=== PATIENT | male | born 1970 | race Caucasian/White ===

== ENCOUNTER → 2020-09-26 08:46 | Outpatient (CLI) | payer OTHER, SELFPAY ==
[2020-09-26 09:14] LABS: COVID19 -Nasal RAPID Negative (Negative)
== END ==
PROVIDERS: Visit Provider Physician Assistant
DX: Z20.822 Contact with and (suspected) exposure to COVID-19 (principal)
CPT/HCPCS: 87635

== ENCOUNTER 2020-09-27 14:14 | Day surgery (SDC) | payer OTHER, SELFPAY ==
--- NOTE | 2020-09-27 | PATH_ITS ---
[facility] Accession Number: [id number] . 01 Material submitted: . rectum - RECTAL BIOPSIES . 01 Clinical history: . A: RECTAL BIOPSIES- 2MM X2, 4MM X2 . 02 Diagnosis: Rectum Biopsies: 2 mm x2, 4 mm x2, Biopsies: Multiple fragments of hyperplastic polyp. Mucosal prolapse polyp, one fragment. [facility] 10/03/2020 1050 Local . 02 Electronically signed: . Lilibeth Evans MD, Pathologist NPI- [id number] . 01 Gross description: . The specimen is received in formalin, labeled rectal, and consists of multiple ibrahim-pink fragments of soft tissue measuring 1.2 x 1.0 x 0.2 cm in aggregate. The specimen is entirely submitted in cassette A1. ([id number]) /[facility] 09/28/2020 1659 Local . 02 Pathologist provided ICD-10: Z12.11, K62.1 . 02 CPT . 950455 Performed at: 01 [facility] [address], [place], [place] [id number] MD Rikki Kuo MD Phone: [phone] Performed at: 02 [facility] [address] [place], [place] [id number] MD Lilibeth Evans MD Phone: [phone]
--- NOTE | 2020-09-27 12:24 | P.HP_ITS ---
History of Present Illness History of Present Illness Date Patient Seen: 09/27/20 Chief complaint: [facility] Narrative: 50 Years Old Male seen today for consideration of a screening colonoscopy. There have been no lower GI symptoms suggesting disease such as change in bowel habits, bleeding, abdominal pain or anemia. There's been no family history of colon cancer or colon polyps. Overall health issues have been stable, including no major cardiac events for at least 6 weeks. Past Medical History: Hyperlipidemia Spinal stenosis, lumbar Foot drop, left Elevated blood pressure reading without diagnosis of hypertension Tobacco dependence ( ALCOHOL ABUSE Past Surgical History: R eardrum surgery x 2 vasectomy L thumb ORIF Family History: Adopted. Social History: Lives at home with and son. 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 Alcohol: 4 cans of beer per day Tobacco: 10 pack year history Ilicit drugs, nothing in last 20 years, THC in college. Patient History Medical History (Updated 09/27/20 @ 14:50 by Vitor Bergman RN) Foot drop, left Hyperlipidemia Hypertension Spinal stenosis, lumbar Surgical History (Updated 09/27/20 @ 14:50 by Vitor Bergman RN) History of ear surgery Hx of thumb surgery Meds Home Medications and Allergies Home Medications Medication Instructions Recorded Confirmed Type atorvastatin 20 mg PO BEDTIME 09/27/20 09/27/20 History Allergies Allergy/AdvReac Type Severity Reaction Status Date / Time CODEINE Allergy Severe Vomiting Uncoded 09/27/20 14:52 Review of Systems Review of Systems ROS: Yes All systems reviewed with the patient and are negative except as otherwise documented Exam Narrative Exam Narrative: GENERAL: Alert and oriented, appearing stated age and in no acute distress. HEENT: Head normocephalic/atraumatic. Pupils equal, round, and reactive to light and accomodation. Extraocular muscles intact. Tympanic membranes clear. Nasal mucosa moist, septum midline. Oral mucosa moist, no lesions. Neck soft and supple, no lymphadenopathy. LUNGS: Clear to ausculation bilaterally, no wheezes, rhonchi or rales. CV: Normal S1 and S2 with regular rate and rhythm, no audible murmurs, rubs or gallops. ABDOMEN: Soft, non-tender, non-distended, no organomegaly. Positive bowel sounds. EXTREMITIES: No clubbing, cyanosis, or edema. NEURO: Cranial nerves II through XII grossly intact, no focal deficits. PSYCH: Alert and oriented x 3. SKIN: No concerning lesions. Assessment & Plan Assessment & Plan narrative: Problem # 1: Screening for colon cancer 1. Colonoscopy The nature and character of the procedure as well as anticipated results were discussed. The possibility of not completing the procedure was also discussed. Possible complications including aspiration pneumonia, bleeding, perforation and reaction to medications either for sedation or preparation and missed lesions were discussed. Questions were answered and proceeding to the colonoscopy was elected. Informed consent signed. I sincerely appreciate the referral allowing me to participate in this patient's care. Please contact me with any questions or concerns. Problem # 2: ALCOHOL ABUSE Due to concurrent heavy alcohol use, will consult MD anesthesia for this procedure.
--- NOTE | 2020-09-27 12:25 | PM.OP.ENDO ---
Operative Date/Time/Diagnoses Date of procedure: 09/27/20 Procedure Notes Procedure in detail: ENDOSCOPIST: Jessica Keller MD Anesthesiologist: Dr. Walters Sedation start time: 3:57 p.m. Sedation end time: 4:29 p.m. PROCEDURE: Colonoscopy with cold biopsy INDICATIONS: 1. Screening for colon cancer MEDICATION: Levsin 0.125 mg sublingual, 100 mcg of fentanyl and incremental doses of propofol until appropriate level of sedation achieved. ASA CLASS: 2 CECAL WITHDRAWAL TIME: 11 minutes COMPLICATIONS: None. EXTENT OF PROCEDURE: Cecum. QUALITY OF PREP: Good with portions of liquid stool. PROCEDURE: Prior to insertion of the colonoscope, a digital rectal examination was accomplished with circumferential palpation of the distal rectal mucosa without significant findings being noted. The high-definition colonoscope was passed into the rectum in the usual fashion and advanced over to the cecum without difficulty. The ileocecal valve, appendiceal stoma, and medial wall all could be inspected and no abnormalities were seen. ASCENDING COLON: As the colonoscope was withdrawn, care was taken to expose and inspect the haustral folds and no abnormalities were seen. HEPATIC FLEXURE: Normal, no polyps, diverticula or other abnormalities. TRANSVERSE COLON: Normal, no polyps, diverticula or other abnormalities. DESCENDING COLON: Normal, no polyps, diverticula or other abnormalities. SIGMOID COLON: Minor diverticulosis, otherwise, normal, no polyps or other abnormalities. RECTUM: 4 polyps, 2-4 mm, removed with cold biopsy forceps. J maneuver was produced. There was no significant perianal disease. The J maneuver was broken. The remainder of the rectum was inspected and there was no external hemorrhoid disease. The scope was withdrawn. IMPRESSION: 1. Rectal polyps x4, 2-4 mm, removed with cold biopsy forceps 2. Sigmoid diverticulosis, mild PLAN: 1. Follow-up in clinic status post pathology results. The possibility of a missed lesion including a malignancy has been discussed with the patient previously. Potential alarm symptoms have been discussed and should be reported immediately.
[2020-09-27 14:54] VITALS: BP 156/101; PULSE 80; RESP 16; TEMP 36.4; O2SAT 99; BMI 26.6
[2020-09-27] MEDS: LACTATED RINGERS 1,000 ML 200 ML IV (15:05)
[2020-09-27] MEDS: HYOSCYAMINE 0.125 MG TABLET PO (15:07)
[2020-09-27 16:37] VITALS: BP 131/89; PULSE 63; RESP 16; TEMP 36.6; O2SAT 100
[2020-09-27 16:42] VITALS: BP 115/79; PULSE 63; RESP 12; O2SAT 98
[2020-09-27 16:47] VITALS: BP 132/91; PULSE 65; RESP 14; O2SAT 99
[2020-09-27 16:52] VITALS: BP 138/94; PULSE 59; RESP 16; O2SAT 100
[2020-09-27 16:53] VITALS: BP 139/102; PULSE 58; RESP 11; TEMP 36.4; O2SAT 100
== END 2020-09-27 17:00 | disposition home or self-care (01) ==
PROVIDERS: PCP Student in an Organized Health Care Education/Training Program; Referring Provider Student in an Organized Health Care Education/Training Program; Visit Provider Student in an Organized Health Care Education/Training Program
PROC: 0DJD8ZZ Inspection of Lower Intestinal Tract, Via Natural or Artificial Opening Endoscopic (ICD-10-PCS; CPT 45378; principal; 2020-09-27 15:15)
DX: K57.30 Diverticulosis of large intestine without perforation or abscess without bleeding (principal); K62.1 Rectal polyp; Z12.11 Encounter for screening for malignant neoplasm of colon
CPT/HCPCS: 45380; J2704; J3010

== ENCOUNTER 2024-03-26 19:55 | Emergency (ER) | payer OTHER, SELFPAY ==
[2024-03-26] VITALS (9 sets, daily range): BP systolic 171–220; BP diastolic 99–119; PULSE 71–87; RESP 14–22; TEMP 36.5; O2SAT 95–99; BMI 28.1
--- NOTE | 2024-03-26 20:31 | PC.NURSE ---
Pt reports hx of htn, but has taken himself of his meds. Pt states he has had chronic sputum for the past few years. Pt is having cough, sore throat and headache. Was not feeling well so he took his blood pressure at home and it was really high. Current BP is 208/119. Pt denies chest pain, denies change in vision and reports some SOB. Encouraged to call if any changes. Call light within reach.
--- NOTE | 2024-03-26 20:39 | ED_ITS ---
HPI - General Adult General Chief complaint: Hypertension Stated complaint: Cough, BP 180/105 Time Seen by Provider: 03/26/24 20:38 Source: patient, RN notes reviewed and old records reviewed Mode of arrival: Ambulatory Limitations: no limitations History of Present Illness HPI narrative: 53-year-old history of hypertension, dyslipidemia, chronic alcohol use presents with complaint of a cough had symptoms with a sore throat about a week ago for day that improved and then sort of got better and then returned about 2 days ago he describes some white phlegm with a little bit greenish earlier today but mostly has been white and very sticky. States he does not have a lot of otherUpper respiratory symptoms. No fevers. He notes a little bit of right ear pain. He denies any chest pain but notes a little bit of shortness of breath. He denies any orthopnea but notes he has more phlegm when he lays flat. Denies any nausea or vomiting. States bowel movements or intermittently diarrhea versus constipation. Denies any urinary symptoms. No swelling.Patient states no fevers or chills. Used to take antihypertensives and a statin stopped both of the use about a year ago because he was feeling better.Denies any recent surgeries. States probable allergy to codeine. Quit using tobacco, drinks about 8 alcoholic drinks daily, uses marijuana denies any other recreational drugs. Related Data Home Medications Medication Instructions Recorded Confirmed atorvastatin 20 mg tablet 20 mg PO BEDTIME 09/27/20 09/27/20 Previous Rx's Medication Instructions Recorded atorvastatin 20 mg tablet 20 mg PO QPM #30 tabs 03/26/24 lisinopril 10 mg tablet 10 mg PO DAILY #30 tabs 03/26/24 Allergies Allergy/AdvReac Type Severity Reaction Status Date / Time CODEINE Allergy Severe Vomiting Uncoded 09/27/20 14:52 Review of Systems Review of Systems ROS Unobtainable: All systems reviewed & are unremarkable except as noted in HPI and below Patient History Medical History Hypertension Foot drop, left Spinal stenosis, lumbar Hyperlipidemia Surgical History Hx of thumb surgery History of ear surgery Social History household members: spouse and children Smoking Status: Former smoker alcohol intake: current Smoking Status: Former smoker alcohol intake frequency: 3 or more drinks per day Substance Use Type: does not use Exam Narrative Exam Narrative: GEN: well nourished, well appearing male, alert and oriented x 3, patient appears to be in mild distress. HEENT: Atraumatic, pupils are equal round reactive to light, extraocular movements are intact, nares are clear, Right TM is retracted with a small amount of fluid but no erythema, left TM is normal there is no conjunctival pallor. Throat is clear without any exudates, erythema, tonsillar enlargement or uvular deviation. LUNGS:Lungs clear to auscultation, no wheezes, rales, crackles, chest moves symmetrically ABD:bowel sounds normal, soft, non-tender, no guarding, rebound, rigidity, no masses noted, no hepatosplenomegaly :No CVA tenderness MSCL: Non-tender, no muscle atrophy, muscles strength 5/5 upper and lower extremities, full range of motion, normal gait NEURO:CN 2-12 intact, sensation normal. Initial Vital Signs Initial Vital Signs: Vital Signs Temperature 97.7 F 03/26/24 20:04 Pulse Rate 84 03/26/24 20:04 Respiratory Rate 18 03/26/24 20:04 Blood Pressure 213/112 H 03/26/24 20:04 Pulse Oximetry 99 03/26/24 20:04 Oxygen Delivery Method Room Air 03/26/24 20:04 Course Orders Ordered: ED Orders 03/26/24 20:41 Complete Blood Count AUTO DIFF Stat Comprehensive Metabolic Panel Stat Lipase Stat NT-proBNP (BNP-Adult 18+) Stat Troponin & CK Cardiac Panel Stat 03/26/24 20:53 EKG-12 Lead Stat 03/26/24 20:58 XR chest 1V Stat EKG-12 Lead Stat 03/26/24 21:02 Covid-19 + FLU A/B + RSV - PCR Stat Discontinued Medications Lisinopril (Lisinopril 10 Mg Tablet) 10 mg PO NOW ONE Stop: 03/26/24 22:02 Last Admin: 03/26/24 22:11 Dose: 10 mg Documented By: SB Vital Signs Vital signs: Vital Signs - 8 hr 03/26/24 20:04 03/26/24 20:25 03/26/24 20:28 Temperature 97.7 F Pulse Rate 84 87 79 Respiratory Rate 18 22 Blood Pressure 213/112 H Pulse Oximetry 99 98 98 Oxygen Delivery Method Room Air 03/26/24 20:28 03/26/24 20:30 03/26/24 20:30 Temperature Pulse Rate 83 Respiratory Rate 15 Blood Pressure 220/118 H 208/119 H Pulse Oximetry 99 Oxygen Delivery Method 03/26/24 21:00 03/26/24 21:00 03/26/24 21:30 Temperature Pulse Rate 73 76 Respiratory Rate 14 17 Blood Pressure 173/111 H Pulse Oximetry 98 96 Oxygen Delivery Method Room Air 03/26/24 21:30 03/26/24 22:00 03/26/24 22:01 Temperature Pulse Rate 71 Respiratory Rate 14 Blood Pressure 171/100 H 187/99 H Pulse Oximetry 95 Oxygen Delivery Method 03/26/24 22:01 03/26/24 22:11 Temperature Pulse Rate 71 79 Respiratory Rate 14 Blood Pressure 187/99 H Pulse Oximetry 95 Oxygen Delivery Method Room Air Medical Decision Making Lab Data 03/26/24 20:41 03/26/24 20:41 Labs: Lab Results 03/26/24 03/26/24 Range/Units 20:41 21:02 WBC 7.9 (4.5-11.0) X10^3/uL RBC 4.63 (4.5-5.9) X10^6/uL Hgb 15.2 (13.5-17.5) g/dL Hct 44.0 (41-53) % MCV 95.0 (80-100) fL MCH 32.7 (26-34) PG MCHC 34.4 (30-36) % RDW 12.6 (11.6-14.8) % Plt Count 245 (150-400) X10^3/uL Neut % (Auto) 69.1 (50-75) % Lymph % (Auto) 16.8 L (25-40) % Towns % (Auto) 5.4 (3-14) % Eos % (Auto) 7.7 H (2-4) % Baso % (Auto) 1.0 (0-2) % Neut # (Auto) 5500 (0737-0257) /uL Lymph # (Auto) 1300 (5221-9653) /uL Towns # (Auto) 400 (0-900) /uL Eos # (Auto) 600 H (0-450) /uL Baso # (Auto) 100 (0-100) /uL Sodium 134 L (137-145) mmol/L Potassium 3.4 (3.4-5.1) mmol/L Chloride 103 (98-107) mmol/L Carbon Dioxide 27 (22-32) mmol/L BUN 16 (9-20) mg/dL Creatinine 0.93 (0.66-1.25) mg/dL Estimated GFR > 60 (>60) mL/min BUN/Creatinine Ratio 17.2 (6-22) Glucose 126 H (70-100) mg/dL Calcium 9.3 (8.4-10.2) mg/dL Total Bilirubin 0.5 (0.2-1.3) mg/dL AST 43 (17-59) IU/L ALT 57 H (<50) IU/L Alkaline Phosphatase 94 (38-126) U/L Total Creatine Kinase 118 (55-170) U/L Troponin I < 0.012 (0.01-0.034) ng/mL NT-Pro-B Natriuret Pep 33 (<125) pg/mL Total Protein 7.7 (6.3-8.2) g/dL Albumin 4.3 (3.5-5.0) g/dL Globulin 3.4 (1.7-4.1) g/dL Albumin/Globulin Ratio 1.3 (1.0-2.8) Lipase 59 (23-300) U/L SARS-CoV-2 (PCR) Negative (Negative) Influenza A (RT-PCR) Flu a negative (NEGATIVE) Influenza B (RT-PCR) Flu b negative (NEGATIVE) RSV (PCR) Negative (Negative) Imaging Data Chest x-ray: Radiologist's Impression: Close Chest X-Ray (Signed) Venice Escobedo - 03/26/24 Launch?[address] [address] XRay Report Signed Patient: Demarco Toledo MR#: [id number] : 1970 Acct:[id number] Age/Sex: 53 / M Date of Service: 03/26/24 Loc: ED Accession Number: [id number] Procedure: XR chest 1V Ordering Provider: Leonie Casper D.O. PROCEDURE: XR CHEST 1V INDICATIONS: cough, htn TECHNIQUE: One view of the chest was acquired. COMPARISON: None. FINDINGS: Surgical changes and devices: None. Lungs and pleura: Lungs are clear. No pleural effusions or pneumothorax. Mediastinum: Mediastinal contours appear normal. Heart size is normal. Bones and chest wall: No suspicious bony lesions. Overlying soft tissues appear unremarkable. IMPRESSION: No acute pulmonary process. Dictated by: Venice Escobedo M.D. on 03/26/2024 at 21:13 Approved by: Venice Escobedo M.D. on 03/26/2024 at 21:13 ECG Data Attestation: I personally reviewed and interpreted this ECG as follows: Prior ECG tracings: not available for review Interpretation: Sinus rhythm, leftAxis deviation, incomplete right bundle-branch block rate of 75 ND 160 QRS of 100 QTC of 424. No acute ST changes appreciated. No priors for comparison. MDM Narrative Medical decision making narrative: 53-year-old presents with cough phlegm suspect possible upright respiratory infection versus postnasal drip quite hypertensive he any chest pain little bit of shortness of breath does not really describe anyOrthopnea but more postnasal drip but on treated for in the past year is blood pressure and cholesterol so we will obtain labs, EKG and chest x-ray as patient is hypertensive here in the department. Labs Show white count of 7.9 hemoglobin of 15 platelets of 245. sodium is 134 electrolytes are otherwise appropriate normal renal function glucose of 126 ALT is 57 otherwise normal LFTs with a negative troponin and BNP of 33 EKG shows sinus rhythm, incomplete right bundle-branch, no acute ST changes are appreciated. CXR shows no acute change Covid/rsv/influenza is negative discussed with patient we will restart oral antihypertensive as his blood pressures improved but is still 171/100 on most recent check, also discussed with patient would like to restart his atorvastatin. patient likely also has a little bit of an upper respiratory infection. Discussed can take some loratadine or Coricidin for his nasal congestion and need for follow up. Discharge Plan Departure Patient Disposition: Home Clinical Impression: Hypertension Instructions: DI for High Blood Pressure Activity Restrictions/Additional Instructions: Your cough today is likely related to some postnasal drip for a little bit of an upper respiratory infection. A prescription to restart blood pressure medication as well as cholesterol medication is included. Please take these once daily, a prescription was sent to [facility] in [place] You do need to follow up with primary care in the next 1-2 weeks to have your blood pressure rechecked and medications adjusted as needed. Please return if you have new or worsening symptoms, new chest pain, shortness of breath, lightheadedness or passing out, swelling of your extremities, difficulty with breathing, fevers or other new or concerning changes. Prescriptions: New lisinopril 10 mg tablet 10 mg PO DAILY Qty: 30 0RF atorvastatin 20 mg tablet 20 mg PO QPM Qty: 30 0RF No Action atorvastatin 20 mg tablet 20 mg PO BEDTIME Referrals: Humberto Shaw MD [Physician] - Stand Alone Forms: Patient Portal/API/Survey
--- NOTE | 2024-03-26 20:47 | EKG_ITS ---
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
--- NOTE | 2024-03-26 20:58 | DI.RAD.S_ITS ---
PROCEDURE: XR CHEST 1V INDICATIONS: cough, htn TECHNIQUE: One view of the chest was acquired. COMPARISON: None. FINDINGS: Surgical changes and devices: None. Lungs and pleura: Lungs are clear. No pleural effusions or pneumothorax. Mediastinum: Mediastinal contours appear normal. Heart size is normal. Bones and chest wall: No suspicious bony lesions. Overlying soft tissues appear unremarkable. IMPRESSION: No acute pulmonary process. Dictated by: Venice Escobedo M.D. on 03/26/2024 at 21:13 Approved by: Venice Escobedo M.D. on 03/26/2024 at 21:13
[2024-03-26 21:16] LABS: Add Manual Diff / Slide Review NO; Basophils Absolute Auto 100 /uL (0-100); Eosinophils Absolute Auto 600 /uL (0-450); Eosinophils Percent Auto 7.7 % (2-4); Hemoglobin 15.2 g/dL (13.5-17.5); Lymphocytes Absolute Auto 1300 /uL (1100-4500); Lymphocytes Percent Auto 16.8 % (25-40); Mean Corpuscular HGB Conc 34.4 % (30-36); Mean Corpuscular Hemoglobin 32.7 PG (26-34); Monocytes Absolute Auto 400 /uL (0-900); Monocytes Percent Auto 5.4 % (3-14); Neutrophils Absolute Auto 5500 /uL (1500-7000); Neutrophils Percent Auto 69.1 % (50-75); Platelet Count 245 X10^3/uL (150-400); Red Blood Cell Count 4.63 X10^6/uL (4.5-5.9); Red Cell Distribution Width 12.6 % (11.6-14.8); White Blood Cell Count 7.9 X10^3/uL (4.5-11.0)
[2024-03-26 21:21] LABS: Alanine Aminotransferase 57 IU/L (<50); Albumin 4.3 g/dL (3.5-5.0); Albumin Globulin Ratio 1.3 (1.0-2.8); Alkaline Phosphatase 94 U/L (38-126); Aspartate Aminotransferase 43 IU/L (17-59); BUN Creatinine Ratio 17.2 (6-22); Bilirubin Total 0.5 mg/dL (0.2-1.3); Blood Urea Nitrogen 16 mg/dL (9-20); Calcium 9.3 mg/dL (8.4-10.2); Carbon Dioxide 27 mmol/L (22-32); Chloride 103 mmol/L (98-107); Creatine Kinase 118 U/L (55-170); Estimated Glomerular Filt Rate > 60 mL/min (>60); Globulin 3.4 g/dL (1.7-4.1); Glucose 126 mg/dL (70-100); HEMOLYSIS < 15 (0-50); Lipase 59 U/L (23-300); Potassium 3.4 mmol/L (3.4-5.1); Sodium 134 mmol/L (137-145); Total Protein 7.7 g/dL (6.3-8.2)
[2024-03-26 21:33] LABS: NT-proBNP (BNP-Adult 18+) 33 pg/mL (<125); Troponin I < 0.012 ng/mL (0.01-0.034)
[2024-03-26 21:49] LABS: COVID-19 CEPHEID 4-PLEX PCR Negative (Negative); Influenza A - CEPHEID Flu A NEGATIVE (NEGATIVE); Influenza B - CEPHEID Flu B NEGATIVE (NEGATIVE); Respiratory Syncytial Virus Negative (Negative)
[2024-03-26] MEDS: lisinopriL 10 MG TABLET PO (22:11)
== END 2024-03-26 22:24 | disposition home or self-care (01) ==
PROVIDERS: Emergency Provider Emergency Medicine; PCP Student in an Organized Health Care Education/Training Program
DX: I10 Essential (primary) hypertension (principal); J02.9 Acute pharyngitis, unspecified; H92.01 Otalgia, right ear; R05.9 Cough, unspecified; I45.10 Unspecified right bundle-branch block
CPT/HCPCS: 0241U; 36415; 71045; 80053; 82550; 83690; 83880; 84484; 85025; 93005; 99284

== ENCOUNTER → 2024-04-11 07:07 | Outpatient (CLI) | payer OTHER, SELFPAY ==
[2024-04-11 08:15] LABS: Cholesterol 190 mg/dL (140-199); HDL Cholesterol 68 mg/dL (40-60); LDL Cholesterol Calculated 88 mg/dL (<100); Triglycerides 172 mg/dL (35-150); VLDL Cholesterol Calculated 34 mg/dL (2-30)
== END ==
PROVIDERS: PCP Family Medicine; Referring Provider Family Medicine; Visit Provider Family Medicine
DX: I10 Essential (primary) hypertension (principal); E78.2 Mixed hyperlipidemia
CPT/HCPCS: 36415; 80061

== ENCOUNTER → 2025-03-28 16:13 | Outpatient (CLI) | payer OTHER, SELFPAY ==
[2025-03-28 17:25] LABS: Hematocrit 43.3 % (41-53); Hemoglobin 15.2 g/dL (13.5-17.5); Mean Corpuscular HGB Conc 35.2 % (30-36); Mean Corpuscular Hemoglobin 32.6 PG (26-34); Mean Corpuscular Volume 92.7 fL (80-100); Platelet Count 234 X10^3/uL (150-400)
[2025-03-28 17:48] LABS: Alanine Aminotransferase 45 IU/L (<50); Albumin 4.7 g/dL (3.5-5.0); Albumin Globulin Ratio 1.6 (1.0-2.8); Alkaline Phosphatase 78 U/L (38-126); Blood Urea Nitrogen 16 mg/dL (9-20); Calcium 10.0 mg/dL (8.4-10.2); Carbon Dioxide 29 mmol/L (22-32); Chloride 100 mmol/L (98-107); Cholesterol 279 mg/dL (140-199); Estimated Glomerular Filt Rate > 60 mL/min (>60); Globulin 3.0 g/dL (1.7-4.1); Glucose 99 mg/dL (70-99); HDL Cholesterol 46 mg/dL (40-60); HEMOLYSIS < 15 (0-50); Potassium 4.5 mmol/L (3.4-5.1); Sodium 137 mmol/L (137-145); Total Protein 7.7 g/dL (6.3-8.2); Triglycerides 318 mg/dL (35-150)
[2025-03-28 18:19] LABS: TSH w/ Reflex to FT4 1.90 uIU/mL (0.47-4.68)
== END ==
PROVIDERS: PCP Family Medicine; Referring Provider Family Medicine; Visit Provider Family Medicine
DX: Z00.00 Encounter for general adult medical examination without abnormal findings (principal)
CPT/HCPCS: 36415; 80053; 80061; 84443; 85027